=== PATIENT | male | born 1965 | race Caucasian/White ===

== ENCOUNTER 2021-03-15 16:06 | Emergency (ER) | payer OTHER ==
[2021-03-15 16:19] VITALS: TEMP 98.1
[2021-03-15] MEDS ORDERED: CIPROFLOXACIN-DEXAMETH 0.3-0.1% DROPS 7.5 ML BTL BOTH EARS STA (16:53)
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
--- NOTE | 2021-03-15 18:59 | XR ---
EXAMINATION TYPE: XR chest 1V portable DATE OF EXAM: 03/15/2021 COMPARISON: 09/15/2011 HISTORY: Cough TECHNIQUE: Single view FINDINGS: There is some linear density at the left lung base. The other lung bello are clear. Heart and mediastinum are normal. There are no hilar masses. IMPRESSION: Mild subsegmental atelectasis left lung base. There is overall improved aeration of the l ungs compared to old exam.
[2021-03-15 19:41] VITALS: BP 114/84; PULSE 91; RESP 16
== END 2021-03-15 19:41 | disposition home or self-care (01) ==
LOC: EC 16:06
DX: H60.93 Unspecified otitis externa, bilateral (principal); F32.9 Major depressive disorder, single episode, unspecified; F17.200 Nicotine dependence, unspecified, uncomplicated
CPT/HCPCS: 71045; 82075; 99284

== ENCOUNTER → 2022-02-08 | Outpatient (CLI) | payer OTHER ==
--- NOTE | 2022-02-08 20:06 | CT ---
EXAMINATION TYPE: CT chest w con DATE OF EXAM: 02/08/2022 COMPARISON: Chest x-ray dated 01/26/2022 HISTORY: Lung nodule, CHRISTINE CT DLP: 234.50 mGycm Automated exposure control for dose reduction was used. TECHNIQUE: CT scan of the chest is performed with IV Contrast, patient injected with 100 mL of Isovue 300. FINDINGS: LUNGS: Bilateral basal linear pulmonary atelectasis. Minimal COPD changes in the upper lobes. Minimal atelectasis/dependent densities along the superior aspect of the right oblique fissure. 4 mm nodule at the posterior aspect of the right lower lobe. Patent trachea and main bronchi. No pleural effusion . MEDIASTINUM: There are no greater than 1 cm hilar or mediastinal lymph nodes. Coronary and arterial v ascular calcification. Slight cardiomegaly. 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 No pericardial effusion is seen. OTHER: Right thyroid lobe hypodensity, please correlate with thyroid ultrasound results. Millimetric hypodensity is seen in the right hepatic lobe, possibly representing a hepatic cyst. Further ultraso und confirmation can be considered. Previous right clavicular fixation. IMPRESSION: 4 mm right lower lobe posterior nodule as described above, requiring no further follow-up if low risk patient. If high-risk patient, optional follow-up CT scan in 12 months can be considered. Other incidental findings and recommendations as described above.
== END | disposition home or self-care (01) ==
LOC: RADCTMAIN 18:16
PROVIDERS: ATTEND Internal Medicine Critical Care Medicine
DX: R91.1 Solitary pulmonary nodule (principal)
CPT/HCPCS: 71260; Q9967

== ENCOUNTER 2023-02-06 23:18 | Emergency (ER) | payer OTHER ==
[2023-02-06 23:28] VITALS: RESP 18
[2023-02-07] MEDS ORDERED: DEXAMETHASONE SOD PHOSPHATE 10 MG/ML 1 ML VIAL IM STA (02:26)
[2023-02-07] MEDS ORDERED: hydrOXYzine HCL 25 MG TAB PO STA (02:26)
--- NOTE | 2023-02-07 02:51 | ED ---
Skin/Abscess/FB HPI - General Chief complaint: Skin/Abscess/Foreign Body Stated complaint: Bug Bites Time Seen by Provider: 02/07/23 02:04 Source: patient, RN notes reviewed Mode of arrival: ambulatory Limitations: no limitations - History of Present Illness Initial comments: This is a 57 year old male who presents to the emergency department for a rash. States that over the last couple of days he's noticed a rash to most of his body that started on his hands. States that these look like bites. He is concerned that his dog may have mites that have spread to him. States that these are very itchy. He took Benadryl with no relief. Also tried bathing in his dog's shampoo, which did not improve his symptoms either. He is having difficulty sleeping because of the itching. Denies any fevers, chills, sore throat, cough, dyspnea, chest pain, palpitations, abdominal pain, nausea, vomiting, diarrhea, back pain, or headaches. MD complaint: rash Onset/Timin -: days(s) Location: generalized - Related Data Home Medications Medication Instructions Recorded Confirmed Cyclobenzaprine [Flexeril] 5 mg PO TID PRN 03/15/21 03/15/21 HYDROcodone/APAP 5-325MG [[place] 1 tab PO Q4HR PRN 03/15/21 03/15/21 5-325] Previous Rx's Medication Instructions Recorded Ciprofloxacin-Dexameth [Ciprodex 4 drops BOTH EARS BID 7 Days #15 ml 03/15/21 Otic Susp] Permethrin 1 applic TOPICAL ONCE #60 gm 02/07/23 predniSONE 50 mg PO DAILY 5 Days #5 tablet 02/07/23 Allergies Allergy/AdvReac Type Severity Reaction Status Date / Time No Known Allergies Allergy Verified 02/06/23 23:28 Review of Systems ROS Statement: Those systems with pertinent positive or pertinent negative responses have been documented in the HPI. ROS Other: All systems not noted in ROS Statement are negative. Past Medical History Additional Past Medical History / Comment(s): broken clavicle, pneumothorax, UMBILICAL HERNIA. History of Any Multi-Drug Resistant Organisms: None Reported Past Surgical History: Back Surgery Additional Past Surgical History / Comment(s): chest tube Past Psychological History: No Psychological Hx Reported Smoking Status: Current every day smoker Past Alcohol Use History: Abuse, Daily, Heavy Past Drug Use History: Cocaine General Exam Limitations: no limitations General appearance: alert, in no apparent distress Head exam: Present: atraumatic, normocephalic, normal inspection Respiratory exam: Present: normal lung sounds bilaterally. Absent: respiratory distress, wheezes, rales, rhonchi, stridor Cardiovascular Exam: Present: regular rate, normal rhythm, normal heart sounds. Absent: systolic murmur, diastolic murmur, rubs, gallop, clicks Neurological exam: Present: alert, oriented X3, CN II-XII intact Psychiatric exam: Present: normal affect, normal mood Skin exam: Present: other (Scattered scab-like lesions on the bilateral upper and lower extremities.) Course Vital Signs 02/06/23 02/07/23 23:25 03:42 Temperature 98.3 F 98.5 F Pulse Rate 95 70 Respiratory 18 18 Rate Blood Pressure 126/86 129/82 O2 Sat by Pulse 99 97 Oximetry Medical Decision Making - Medical Decision Making This is a 57-year-old male who presents emergency department for a rash. Was pt. sent in by a medical professional or institution? @ -No Did you speak to anyone other than the patient for history? @ -No Did you review nursing and triage notes? @ -Yes, and I agree, it is accurate with regards to the patient's symptoms. Were old charts reviewed? @ -No Differential Diagnosis? @ -Differential Rash: [place], measles, Lyme disease, erythema multiforme, cellulitis, toxic shock syndrome, Donnell Giuseppe syndrome, Kawasaki disease, darek mountain spotted fever, contact dermatitis, allergic dermatitis, measles, mumps, rubella, varicella, meningococcal disease, drug reaction, coxsackievirus, This is not meant to be an all-inclusive list. EKG interpreted by me (3pts min.)? @ -Not obtained X-rays interpreted by me (1pt min.)? @ -Not obtained CT interpreted by me (1pt min.)? @ -Not obtained U/S interpreted by me (1pt. min.)? @ -Not obtained What testing was considered but not performed? (CT, X-rays, U/S, labs)? Why? @ -None What meds were considered but not given? Why? @ -None Did you discuss the management of the patient with other professionals? @ -No Did you reconcile home meds? @ -No Was smoking cessation discussed for >3mins.? @ -No Was critical care preformed (if so, how long)? @ -No Were there social determinants of health that impacted care today? How? (Homelessness, low income, unemployed, alcoholism, drug addiction, transportation, low edu. Level, literacy, decrease access to med. care, assisted, rehab)? @ -No Was there de-escalation of care discussed even if they declined? (Discuss DNR or withdrawal of care, Hospice)? @ -No What co-morbidities impacted this encounter? (DM, HTN, Smoking, COPD, CAD, Cancer, CVA, Hep., AIDS, mental health diagnosis, sleep apnea, morbid obesity)? @ -None Was patient admitted / discharged? @ -Discharged. Physical examination does reveal scattered scab-like lesions suggestive of some kind of bite. He was given a dose of steroids and Atarax in the emergency department for symptomatic management. Discussed with the patient that we'll treat him with permethrin cream for possible scabies. He is instructed to wash all linens and the clothes that he has been wearing in hot water and avoid using them for a couple of weeks. Prescription for permethrin cream and prednisone provided with dosing instructions reviewed. Otherwise advised he continue with the Benadryl for additional management of the itching. Undiagnosed new problem with uncertain prognosis? @ -None Drug Therapy requiring intensive monitoring for toxicity (Heparin, Nitro, Insulin, Cardizem)? @ -None Were any procedures done? @ -None Diagnosis/symptom? @ -Scabies Acute, or Chronic, or Acute on Chronic? @ -Acute Uncomplicated (without systemic symptoms) or Complicated (systemic symptoms)? @ -Uncomplicated Side effects of treatment? @ -None Exacerbation, Progression, or Severe Exacerbation] @ -Not applicable Poses a threat to life or bodily function? @ -No Return precautions reviewed in depth, the patient is instructed to return to the emergency department with any new, worsening, or concerning symptoms. Patient verbalized understanding. This case was discussed in detail with the attending ED physician, Dr. Mcfarlane. Presentation, findings, and treatment plan discussed in detail as well. Disposition Clinical Impression: Scabies Disposition: HOME SELF-CARE Instructions (If sedation given, give patient instructions): Scabies (ED) Additional Instructions: Return to the emergency department with any new, worsening, or concerning symptoms. Take the prednisone daily for 5 days. Apply the permethrin cream from the neck down and leave on for 8-12 hours before washing off. Repeat this in 1-2 weeks if symptoms persist. You can continue to take Benadryl as needed for any additional itching as well. Follow up with your primary care provider in 1-2 days. Prescriptions: RX: Permethrin 1 applic TOPICAL ONCE #60 gm RX: predniSONE 50 mg PO DAILY 5 Days #5 tablet Is patient prescribed a controlled substance at d/c from ED?: No Referrals: Shiv Wiggins DO [Primary Care Provider] - 1-2 days
[2023-02-07 03:43] VITALS: BP 129/82; PULSE 70; TEMP 98.5
== END 2023-02-07 03:43 | disposition home or self-care (01) ==
LOC: EC 23:18
DX: B86 Scabies (principal); F17.200 Nicotine dependence, unspecified, uncomplicated; F14.90 Cocaine use, unspecified, uncomplicated
CPT/HCPCS: 99282; 96372; J1100

== ENCOUNTER → 2023-03-21 | Outpatient (CLI) | payer OTHER ==
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
== END | disposition home or self-care (01) ==
LOC: RADUSWWP 09:36
PROVIDERS: ATTEND Internal Medicine
DX: J98.6 Disorders of diaphragm (principal)
CPT/HCPCS: 76000

== ENCOUNTER → 2023-05-17 | Outpatient (CLI) | payer OTHER ==
--- NOTE | 2023-05-18 09:37 | CT ---
EXAMINATION TYPE: CT chest w con CT DLP: 167.2 mGycm, Automated exposure control for dose reduction was used. DATE OF EXAM: 05/17/2023 7:23 PM COMPARISON: 02/08/2022 CLINICAL INDICATION:Male, 58 years old with history of R91.1 SOLITARY PULMONARY NODULE, Right side ch est pain progressing with SOB. Right side diaphragm paralysis TECHNIQUE: Multiple axial images were obtained through the chest. Sagittal and coronal reformats were created for review. Contrast used:100 cc mL of Isovue 300 with IV Contrast (None if empty) Oral contrast used: (None if empty) FINDINGS: LUNGS/ PLEURA: Mild to moderate centrilobular emphysema changes present throughout the lungs.. A righ t lower lung peripheral pulmonary nodule measuring 8 mm has increased in size from 4 mm on 01/30/2022. AIRWAY: Patent and unremarkable. HEART: Size within normal limits. MEDIASTINUM: No gross evidence of adenopathy. VASCULATURE: No aortic aneurysm. MUSCULOSKELETAL: Multiple healed/healing right-sided rib fractures with osseous fusion particularly t he 3, 4 and 5 ribs. SOFT TISSUES/LYMPH NODES: Unremarkable. LOWER NECK: No significant findings. UPPER ABDOMEN: No significant findings. IMPRESSION: 1. Suspicious right lower lobe posterior pulmonary nodule which is most troubled in size from 022. No lymphadenopathy at this time. PET/CT recommended. 2. Remote right ribs 3 through 5 fractures with good osseous fusion.
== END | disposition home or self-care (01) ==
LOC: RADCTMAIN 18:57
PROVIDERS: ATTEND Internal Medicine
DX: R91.1 Solitary pulmonary nodule (principal)
CPT/HCPCS: 71260; Q9967

== ENCOUNTER → 2023-06-08 | Outpatient (CLI) | payer OTHER ==
--- NOTE | 2023-06-08 22:38 | PE ---
EXAMINATION TYPE: PET CT fusion skull to thigh DATE OF EXAM: 06/08/2023 COMPARISON: Prior chest CT May 17, 2023 HISTORY: Solitary pulmonary nodule . TECHNIQUE: Following the intravenous administration of 10.18 mCi of F-18 FDG, whole body images are performed from the skull base to the midthigh. Images are reviewed on the computer in the coronal, a xial, and sagittal planes. Reconstructed rotating images are created on independent workstation and reviewed on the computer. A localization and attenuation correction CT is performed in conjunction with the PET scan. Blood glucose level equals 96. SCAN: Initial Scan FINDINGS: SKULL BASE AND NECK: No areas of abnormal hypermetabolic uptake. CHEST, MEDIASTINUM, AND HILAR REGION: Mild underlying emphysematous change is redemonstrated in the u pper lungs. Persistent posterior right lower lung 6 mm pulmonary nodule axial image 119 is currently ametabolic. No suspicious areas abnormal hypermetabolic uptake in the thorax. ABDOMEN AND PELVIS: Normal excretion is present. No hypermetabolic adrenal masses. No areas of suspic ious hypermetabolic uptake in the abdomen or pelvis. OSSEOUS STRUCTURES: No areas of abnormal hypermetabolic uptake. OTHER CT: The nasal septum is deviated to left of midline. Some scoliotic curvature in the upper thor acic spine is redemonstrated. IMPRESSION: No abnormal hypermetabolic uptake in the 6 mm posterior right lower lobe pulmonary nodule . Advise CT follow-up in 6-12 months time to reassess.
== END | disposition home or self-care (01) ==
LOC: RADPETMAIN 14:36
PROVIDERS: ATTEND Internal Medicine
DX: R91.1 Solitary pulmonary nodule (principal)
CPT/HCPCS: 78815; A9552